=== PATIENT | female | born 1960 | race Caucasian/White ===

== ENCOUNTER 2017-05-06 18:27 | Emergency (ER) | payer OTHER ==
[~2017-05-06] VITALS: Ht 152.4 cm; Wt 74.8 kg
[2017-05-06] MEDS ORDERED: HYDCHL25 (19:52)
[2017-05-06] MEDS ORDERED: ANAS1 PO (19:55)
[2017-05-06 20:04] LABS: BASOPHILS ABSOLUTE AUTO 0.03 K/mm3 (0.00-0.23); BASOPHILS PERCENT AUTO 1 % (0-2); EOSINOPHILS ABSOLUTE AUTO 0.12 K/mm3 (0.00-0.68); EOSINOPHILS PERCENT AUTO 2 % (0-6); Hematocrit 37.6 % (33.0-51.0); Hemoglobin 12.5 g/dL (11.5-16.0); IMMATURE GRAN ABSOLUTE AUTO 0.02 K/mm3 (0.00-0.10); IMMATURE GRAN PERCENT AUTO 0 % (0-1); LYMPHOCYTES ABSOLUTE AUTO 2.04 K/mm3 (0.84-5.20); LYMPHOCYTES PERCENT AUTO 34 % (21-46); MONOCYTES ABSOLUTE AUTO 0.42 K/mm3 (0.16-1.47); MONOCYTES PERCENT AUTO 7 % (4-13); Mean Corpuscular HGB 27.7 pg (26.0-34.0); Mean Corpuscular HGB Conc 33.2 g/dL (31.5-36.5); Mean Corpuscular Volume 83 fL (80-100); NEUTROPHILS ABSOLUTE AUTO 3.46 K/mm3 (1.96-9.15); NEUTROPHILS PERCENT AUTO 57 % (41-73); Platelet Count 269 K/mm3 (150-400); Red Blood Cell Count 4.51 M/mm3 (3.80-5.20); White Blood Cell Count 6.09 K/mm3 (4.00-11.30)
[2017-05-06 20:24] LABS: Alanine Aminotransfer (ALT/SGP 33 U/L (12-78); Albumin, Blood 3.3 g/dL (3.4-5.0); Albumin/Globulin Ratio 0.8 (0.8-1.8); Alk Phos 118 U/L (50-136); Anion Gap 8 mmol/L (6-16); Aspartate Aminotrans (AST/SGOT 25 U/L (12-37); Bilirubin, Total 0.4 mg/dL (0.1-1.0); Blood Urea Nitrogen 14 mg/dL (8-24); Bun/Creatinine Ratio 24.7 (12.0-20.0); CO2, Blood 28 mmol/L (21-32); Calcium, Blood 8.6 mg/dL (8.5-10.1); Chloride, Blood 106 mmol/L (98-108); Creatinine, Blood 0.57 mg/dL (0.40-1.00); Globulin, Blood 4.4 g/dL (2.2-4.0); Glomerular Filtration Rate >60 (60-); Glucose, Blood 123 mg/dL (70-99); Potassium, Blood 3.3 mmol/L (3.5-5.5); Sodium, Blood 142 mmol/L (136-145); Total Protein, Blood 7.7 g/dL (6.4-8.2); Troponin I <0.015 ng/mL (0.000-0.040)
== END 2017-05-06 21:52 | disposition home or self-care (01) ==
LOC: ER 18:27
PROVIDERS: Physician Assistant
DX: R07.89 Other chest pain (principal); I10 Essential (primary) hypertension; Z85.3 Personal history of malignant neoplasm of breast; Z88.5 Allergy status to narcotic agent; Z79.899 Other long term (current) drug therapy
CPT/HCPCS: 36415; 80053; 83880; 84484; 85025; 93005; 93010; 96374; 99283; J1885

== ENCOUNTER 2018-01-01 20:12 | Emergency (ER) | payer OTHER ==
[~2018-01-01] VITALS: Ht 152.4 cm; Wt 81.7 kg
[~2018-01-01 20:12] MED LIST: ANAS1 PO; HYDCHL25
[2018-01-01] MEDS ORDERED: Cleocin HCl300 MG PO (21:13)
== END 2018-01-01 21:23 | disposition home or self-care (01) ==
LOC: ER 20:12
DX: K02.9 Dental caries, unspecified (principal); Z88.5 Allergy status to narcotic agent; Z79.899 Other long term (current) drug therapy; E11.9 Type 2 diabetes mellitus without complications; I10 Essential (primary) hypertension; Z85.3 Personal history of malignant neoplasm of breast
CPT/HCPCS: 99282

== ENCOUNTER 2018-08-20 18:46 | Inpatient (IN) | payer OTHER ==
[~2018-08-20] VITALS: Ht 152.4 cm; Wt 91.7 kg
[~2018-08-20 18:46] MED LIST changes: +Cleocin HCl300 MG PO; -HYDCHL25; +HYDCHL25 PO
[2018-08-20 19:52] LABS: BASOPHILS ABSOLUTE AUTO 0.02 K/mm3 (0.00-0.23); BASOPHILS PERCENT AUTO 2 % (0-2); EOSINOPHILS ABSOLUTE AUTO 0.02 K/mm3 (0.00-0.68); EOSINOPHILS PERCENT AUTO 2 % (0-6); Hematocrit 37.5 % (33.0-51.0); Hemoglobin 12.2 g/dL (11.5-16.0); IMMATURE GRAN ABSOLUTE AUTO 0.01 K/mm3 (0.00-0.10); IMMATURE GRAN PERCENT AUTO 1 % (0-1); LYMPHOCYTES ABSOLUTE AUTO 0.82 K/mm3 (0.84-5.20); LYMPHOCYTES PERCENT AUTO 70 % (21-46); MONOCYTES ABSOLUTE AUTO 0.22 K/mm3 (0.16-1.47); MONOCYTES PERCENT AUTO 19 % (4-13); Mean Corpuscular HGB 26.9 pg (26.0-34.0); Mean Corpuscular HGB Conc 32.5 g/dL (31.5-36.5); Mean Corpuscular Volume 83 fL (80-100); Mean Platelet Volume 10.7 fL (9.1-12.4); NEUTROPHILS ABSOLUTE AUTO 0.09 K/mm3 (1.96-9.15); NEUTROPHILS PERCENT AUTO 8 % (41-73); NRBC ABSOLUTE 0.02 K/mm3 (0.00-0.02); NRBC Auto 1.7 /100 WBC (0.0-0.2); Platelet Count 255 K/mm3 (150-400); RDW Coefficient Variation 13.2 % (11.7-14.2); RDW Standard Deviation 39.7 fL (35.1-46.3); Red Blood Cell Count 4.53 M/mm3 (3.80-5.20); White Blood Cell Count 1.18 K/mm3 (4.00-11.30)
[2018-08-20 20:15] LABS: Alanine Aminotransfer (ALT/SGP 60 U/L (12-78); Albumin, Blood 3.2 g/dL (3.4-5.0); Albumin/Globulin Ratio 0.7 (0.8-1.8); Alk Phos 156 U/L (50-136); Anion Gap 5 mmol/L (6-16); Aspartate Aminotrans (AST/SGOT 57 U/L (12-37); Bilirubin, Total 0.6 mg/dL (0.1-1.0); Blood Urea Nitrogen 15 mg/dL (8-24); Bun/Creatinine Ratio 26.9 (12.0-20.0); CO2, Blood 28 mmol/L (21-32); Calcium, Blood 9.3 mg/dL (8.5-10.1); Chloride, Blood 103 mmol/L (98-108); Creatinine, Blood 0.56 mg/dL (0.40-1.00); Globulin, Blood 4.5 g/dL (2.2-4.0); Glomerular Filtration Rate >60 (60-); Glucose, Blood 132 mg/dL (70-99); Potassium, Blood 3.8 mmol/L (3.5-5.5); Sodium, Blood 136 mmol/L (136-145); Total Protein, Blood 7.7 g/dL (6.4-8.2)
[2018-08-20 21:21] LABS: Source, Urine Clean Catch
[2018-08-20 21:22] LABS: Bilirubin, Urine Neg (Neg); Blood, Urine 1+ (Neg); Glucose Qualitative, Urine Neg (Neg); Ketones, Urine Neg (Neg); Leukocyte Esterase, Urine Neg (Neg); Nitrite, Urine Neg (Neg); Protein, Urine Neg (Neg); Specific Gravity, Urine 1.025 (1.003-1.022); Urobilinogen, Urine NORM (Normal)
[2018-08-20 21:26] LABS: Appearance, Urine Clear (Clear); Color, Urine Yellow (P-Yellow)
[2018-08-20 21:29] LABS: Bacteria Rare /hpf; Red Blood Cells, Urine 0-2 /hpf (0-2); Squamous Epithelial Cells Few /hpf (Few); White Blood Cells, Urine Rare /hpf (0-5)
--- NOTE | 2018-08-20 23:45 | NUR ---
PT ADMITTED FROM ED FOR NEUTROPENIC FEVER. A&O X4. 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 PT REPORTS LAST CHEMO TX WAS 2 WEEKS AGO. WBC AT 1.18. PT IN NEUTROPENIC PRECAUTIONS. CHEST XRAY SHOWED PNEUMONIA IN LEFT UPPER LOBE. LUNG SOUNDS TO LEFT SIDE ARE COURSE AND DIMINISHED. PT DENIES SOB. TEMP AT 98.9 UPON ARRIVAL. FLUIDS AND ABX INFUSING. INDEPENDENT IN ROOM. PT ORIENTED TO ROOM AND EDUCATED NET FISHER LIGHT.
[2018-08-21] MEDS ORDERED: GLIP5 PO (00:04)
[2018-08-21] MEDS ORDERED: LEVSOD25 PO (00:05)
[2018-08-21] MEDS ORDERED: METF500 PO (00:06)
[2018-08-21] MEDS ORDERED: HYDR1TAB94 (00:07)
[2018-08-21 04:46] LABS: BASOPHILS ABSOLUTE AUTO 0.03 K/mm3 (0.00-0.23); BASOPHILS PERCENT AUTO 3 % (0-2); EOSINOPHILS ABSOLUTE AUTO 0.02 K/mm3 (0.00-0.68); EOSINOPHILS PERCENT AUTO 2 % (0-6); Hematocrit 34.6 % (33.0-51.0); Hemoglobin 11.1 g/dL (11.5-16.0); IMMATURE GRAN ABSOLUTE AUTO 0.02 K/mm3 (0.00-0.10); IMMATURE GRAN PERCENT AUTO 2 % (0-1); LYMPHOCYTES ABSOLUTE AUTO 0.87 K/mm3 (0.84-5.20); LYMPHOCYTES PERCENT AUTO 73 % (21-46); MONOCYTES ABSOLUTE AUTO 0.21 K/mm3 (0.16-1.47); MONOCYTES PERCENT AUTO 18 % (4-13); Mean Corpuscular HGB 27.3 pg (26.0-34.0); Mean Corpuscular HGB Conc 32.1 g/dL (31.5-36.5); Mean Corpuscular Volume 85 fL (80-100); Mean Platelet Volume 10.2 fL (9.1-12.4); NEUTROPHILS ABSOLUTE AUTO 0.05 K/mm3 (1.96-9.15); NEUTROPHILS PERCENT AUTO 4 % (41-73); Platelet Count 200 K/mm3 (150-400); RDW Coefficient Variation 13.2 % (11.7-14.2); RDW Standard Deviation 41.1 fL (35.1-46.3); Red Blood Cell Count 4.06 M/mm3 (3.80-5.20)
[2018-08-21 05:08] LABS: Alanine Aminotransfer (ALT/SGP 49 U/L (12-78); Albumin, Blood 2.8 g/dL (3.4-5.0); Albumin/Globulin Ratio 0.7 (0.8-1.8); Alk Phos 134 U/L (50-136); Anion Gap 4 mmol/L (6-16); Aspartate Aminotrans (AST/SGOT 42 U/L (12-37); Bilirubin, Total 0.4 mg/dL (0.1-1.0); Blood Urea Nitrogen 13 mg/dL (8-24); CO2, Blood 29 mmol/L (21-32); Calcium, Blood 8.6 mg/dL (8.5-10.1); Chloride, Blood 108 mmol/L (98-108); Creatinine, Blood 0.65 mg/dL (0.40-1.00); Globulin, Blood 3.8 g/dL (2.2-4.0); Glomerular Filtration Rate >60 (60-); Glucose, Blood 132 mg/dL (70-99); Potassium, Blood 3.9 mmol/L (3.5-5.5); Sodium, Blood 141 mmol/L (136-145); Total Protein, Blood 6.6 g/dL (6.4-8.2)
--- NOTE | 2018-08-22 04:51 | NUR ---
SUMMARY: ADMIT DAY 2 NEUTROPENIC PRECAUTIONS, FERNANDO PNEUMONIA ON HOSPITALIST SERVICE. NO ACUTE CHANGES THIS SHIFT. VSS, AFEBRILE, ROOM AIR, PAIN WELL CONTROLLED WITH 1 TAB NORCO X2 THIS SHIFT. AWAIT MORNING LAB RESULTS, ANTICIPATE CONTINUATION OF ANTIBIOTICS AND NEUPOGEN.
[2018-08-22 05:06] LABS: BASOPHILS ABSOLUTE AUTO 0.06 K/mm3 (0.00-0.23); BASOPHILS PERCENT AUTO 3 % (0-2); EOSINOPHILS ABSOLUTE AUTO 0.03 K/mm3 (0.00-0.68); EOSINOPHILS PERCENT AUTO 1 % (0-6); Hemoglobin 10.9 g/dL (11.5-16.0); IMMATURE GRAN ABSOLUTE AUTO 0.05 K/mm3 (0.00-0.10); IMMATURE GRAN PERCENT AUTO 2 % (0-1); LYMPHOCYTES ABSOLUTE AUTO 0.98 K/mm3 (0.84-5.20); LYMPHOCYTES PERCENT AUTO 45 % (21-46); MONOCYTES ABSOLUTE AUTO 0.45 K/mm3 (0.16-1.47); MONOCYTES PERCENT AUTO 21 % (4-13); Mean Corpuscular HGB Conc 32.1 g/dL (31.5-36.5); Mean Corpuscular Volume 84 fL (80-100); Mean Platelet Volume 10.2 fL (9.1-12.4); NEUTROPHILS ABSOLUTE AUTO 0.62 K/mm3 (1.96-9.15); NEUTROPHILS PERCENT AUTO 28 % (41-73); NRBC ABSOLUTE 0.05 K/mm3 (0.00-0.02); NRBC Auto 2.3 /100 WBC (0.0-0.2); Platelet Count 205 K/mm3 (150-400); RDW Coefficient Variation 13.4 % (11.7-14.2); RDW Standard Deviation 41.8 fL (35.1-46.3); Red Blood Cell Count 4.03 M/mm3 (3.80-5.20); White Blood Cell Count 2.19 K/mm3 (4.00-11.30)
[2018-08-22 05:26] LABS: Albumin, Blood 2.8 g/dL (3.4-5.0); Anion Gap 6 mmol/L (6-16); Blood Urea Nitrogen 9 mg/dL (8-24); Bun/Creatinine Ratio 14.1 (12.0-20.0); CO2, Blood 26 mmol/L (21-32); Calcium, Blood 9.2 mg/dL (8.5-10.1); Chloride, Blood 108 mmol/L (98-108); Creatinine, Blood 0.64 mg/dL (0.40-1.00); Glomerular Filtration Rate >60 (60-); Glucose, Blood 104 mg/dL (70-99); Phosphorus, Blood 4.7 mg/dL (2.5-4.9); Potassium, Blood 3.9 mmol/L (3.5-5.5); Sodium, Blood 140 mmol/L (136-145)
--- NOTE | 2018-08-22 13:50 | NUR ---
PT SITTING UP READING. NEB TX COMPLETE.
--- NOTE | 2018-08-22 17:49 | NUR ---
SHIFT SUMMARY NO ACUTE CHANGES THIS SHIFT. VSS AND PT REMAINS AFEBRILE. PT DOES HAVE AN OCCASSIONAL PRODUCTIVE COUGH WITH WHEEZING. RT GIVING BREATHING TXS. IV IS SL. PT INDEP IN ROOM. MARY REG DIET. PT STARTED ON ORAL STEROIDS TODAY. MEDICATED WITH 1 PAIN PILL. WBC TRENDING UP. USES CALL LIGHT APPROPRIATELY. WILL CONT TO MONITOR.
--- NOTE | 2018-08-23 05:23 | NUR ---
NO SIG CHANGES DURING NIGHT. LS REMAINED CLEAR WITHOUT WHEEZES T/O SHIFT. DID NOT REQUIRE ADDITIONAL NEB TREATMENTS. MEDICATED FOR PAIN ONCE ALONG WITH ROBITUSSIN. PT DENIED ANY NEEDS THIS AM AND IS HOPEFUL TO DC HOME. CALL LIGHT IN REACH AND WILL REPORT OFF TO DAY SHIFT.
[2018-08-23 05:52] LABS: Hematocrit 35.5 % (33.0-51.0); Hemoglobin 11.5 g/dL (11.5-16.0); Mean Corpuscular HGB 26.7 pg (26.0-34.0); Mean Corpuscular HGB Conc 32.4 g/dL (31.5-36.5); Mean Corpuscular Volume 83 fL (80-100); Mean Platelet Volume 10.8 fL (9.1-12.4); NRBC ABSOLUTE 0.06 K/mm3 (0.00-0.02); NRBC Auto 0.9 /100 WBC (0.0-0.2); Platelet Count 242 K/mm3 (150-400); RDW Coefficient Variation 13.7 % (11.7-14.2); White Blood Cell Count 6.71 K/mm3 (4.00-11.30)
[2018-08-23 06:15] LABS: BAND PERCENT MAN 23 % (0-8); BASOPHILS ABSOLUTE MAN 0.06 K/mm3 (0.00-0.23); BASOPHILS PERCENT MAN 1 % (0-2); EOSINOPHILS PERCENT MAN 0 % (0-6); LYMPHOCYTES PERCENT MAN 15 % (21-46); METAMYELOCYTE ABSOLUTE MAN 0.33 K/mm3 (0.00-0.00); METAMYELOCYTE PERCENT MAN 5 % (0-0); MONOCYTES ABSOLUTE MAN 0.67 K/mm3 (0.16-1.47); MONOCYTES PERCENT MAN 10 % (4-13); MYELOCYTE ABSOLUTE MAN 0.06 K/mm3 (0.00-0.00); MYELOCYTE PERCENT MAN 1 % (0-0); NEUTROPHILS ABSOLUTE MAN 4.56 K/mm3 (1.96-9.15); SEG NEUTROPHILS PERCENT MAN 45 % (41-73); TOTAL CELLS COUNTED 100
[2018-08-23] MEDS ORDERED: Florastor250 MG PO (12:23)
[2018-08-23] MEDS ORDERED: ALBU2.5V5 NEB (12:24)
[2018-08-23] MEDS ORDERED: ROBITUSSIN100 MG/5 M PO (12:39)
[2018-08-23] MEDS ORDERED: ALBU3IS INH (12:49)
[2018-08-23] MEDS ORDERED: Augmentin 875-1 EACH PO (12:50)
[2018-08-23] MEDS ORDERED: DOCU100 PO (12:54)
[2018-08-23] MEDS ORDERED: PRED20 (12:54)
[2018-08-23] MEDS ORDERED: Senna8.6 MG PO (12:54)
[2018-08-23] MEDS ORDERED: Norco 5-325 Ta1 EACH PO (12:55)
--- NOTE | 2018-08-23 15:33 | NUR ---
DISCHARGE MEDS FAXED TO [facility], CARE MANAGEMENT SETTING UP NEB MACHINE & TUBING, FWW, AND RISER. PT STATES UNDERSTANDING OF MEDS AND F/U. DECLINES TO WAIT ANY LONGER TO ESTABLISH PCP.
== END 2018-08-23 14:45 | disposition home or self-care (01) | DRG 194 ==
LOC: ER 18:46 → SURS 23:20
PROVIDERS: Internal Medicine; Physician Assistant; ADMIT Internal Medicine
DX: J18.1 Lobar pneumonia, unspecified organism (principal); C78.00 Secondary malignant neoplasm of unspecified lung; C78.89 Secondary malignant neoplasm of other digestive organs; C79.51 Secondary malignant neoplasm of bone; C79.89 Secondary malignant neoplasm of other specified sites; C50.919 Malignant neoplasm of unspecified site of unspecified female breast; E11.9 Type 2 diabetes mellitus without complications; I10 Essential (primary) hypertension; G89.3 Neoplasm related pain (acute) (chronic); E03.9 Hypothyroidism, unspecified
CPT/HCPCS: 36415; 71046; 80053; 80069; 81001; 82947; 83605; 85025; 87040; 94640; 94760; 94761; 96365; 96375; 99284-25; A9270-GY; C9113; J0456; J0696; J1447; J2543; J7030; J7050; J7512

== ENCOUNTER 2018-12-02 02:10 | Day surgery (SDC) | payer OTHER ==
[~2018-12-02 02:10] MED LIST changes: +ALBU2.5V5 NEB; +ALBU3IS INH; +Augmentin 875-1 EACH PO; +DOCU100 PO; +Florastor250 MG PO; +GLIP5 PO; +HYDR1TAB94 PO; +LEVSOD25 PO; +METCAR500 PO; +METF500 PO; +Norco 5-325 Ta1 EACH PO; +PRED20; +Percocet 5-3251 EACH PO; +ROBITUSSIN100 MG/5 M PO; +Senna8.6 MG PO
[2018-12-02] MEDS ORDERED: IBRANCE100 MG PO (08:45)
[2018-12-02] MEDS ORDERED: PROC5 PO (08:46)
[2018-12-02] MEDS ORDERED: Zantac150 MG (08:46)
[2018-12-02] MEDS ORDERED: LORA1 PO (08:47)
[2018-12-02] MEDS ORDERED: DEXA4 PO (08:48)
[2018-12-02] MEDS ORDERED: POTA10T PO (08:48)
[2018-12-02] MEDS ORDERED: ONDA4ODT MM (08:53)
[2018-12-02] MEDS ORDERED: NARCAN4 MG INH (08:53)
[2018-12-02] MEDS ORDERED: MORP15ER PO (08:54)
== END 2018-12-02 10:18 | disposition home or self-care (01) ==
LOC: ATC 02:10
DX: D64.9 Anemia, unspecified (principal); C50.812 Malignant neoplasm of overlapping sites of left female breast; C79.51 Secondary malignant neoplasm of bone; G89.3 Neoplasm related pain (acute) (chronic); R11.2 Nausea with vomiting, unspecified; T45.1X5A Adverse effect of antineoplastic and immunosuppressive drugs, initial encounter; E11.9 Type 2 diabetes mellitus without complications; I10 Essential (primary) hypertension; Z88.5 Allergy status to narcotic agent; Z17.0 Estrogen receptor positive status [ER+]
CPT/HCPCS: 36415; 36430; 86850; 86900; 86901; 86920; J7050; P9016

== ENCOUNTER 2019-01-26 10:05 | Day surgery (SDC) | payer OTHER ==
[~2019-01-26 10:05] MED LIST changes: +DEXA4 PO; +IBRANCE100 MG PO; +LORA1 PO; +MORP15ER PO; +NARCAN4 MG INH; +ONDA4ODT MM; +POTA10T PO; +PROC5 PO; +Zantac150 MG
== END 2019-01-26 11:26 | disposition home or self-care (01) ==
LOC: ATC 10:05
DX: C50.912 Malignant neoplasm of unspecified site of left female breast (principal); C79.51 Secondary malignant neoplasm of bone; D63.0 Anemia in neoplastic disease; Z17.0 Estrogen receptor positive status [ER+]; I10 Essential (primary) hypertension; E11.9 Type 2 diabetes mellitus without complications; Z79.899 Other long term (current) drug therapy; Z79.84 Long term (current) use of oral hypoglycemic drugs; Z79.51 Long term (current) use of inhaled steroids; Z88.5 Allergy status to narcotic agent
CPT/HCPCS: 96360; J7030

== ENCOUNTER 2019-02-11 17:34 | Inpatient (IN) | payer OTHER ==
[~2019-02-11] VITALS: Ht 149.9 cm; Wt 77.1 kg
[2019-02-11 18:54] LABS: International Normalized Ratio 1.03; Prothrombin Time Results 10.9 Sec (9.7-11.5)
[2019-02-11 19:04] LABS: Alanine Aminotransfer (ALT/SGP 58 U/L (12-78); Albumin, Blood 2.8 g/dL (3.4-5.0); Albumin/Globulin Ratio 0.5 (0.8-1.8); Alk Phos 285 U/L (50-136); Anion Gap 6 mmol/L (6-16); Aspartate Aminotrans (AST/SGOT 102 U/L (12-37); Bilirubin, Total 1.3 mg/dL (0.1-1.0); Blood Urea Nitrogen 16 mg/dL (8-24); Bun/Creatinine Ratio 25.9 (12.0-20.0); CO2, Blood 23 mmol/L (21-32); Calcium, Blood 12.1 mg/dL (8.5-10.1); Chloride, Blood 104 mmol/L (98-108); Creatinine, Blood 0.62 mg/dL (0.40-1.00); Globulin, Blood 5.3 g/dL (2.2-4.0); Glomerular Filtration Rate >60 (60-); Glucose, Blood 253 mg/dL (70-99); Sodium, Blood 133 mmol/L (136-145); Total Protein, Blood 8.1 g/dL (6.4-8.2); Troponin I <0.015 ng/mL (0.000-0.040)
[2019-02-11 22:23] LABS: Source, Urine Clean Catch
[2019-02-11 22:25] LABS: Bilirubin, Urine Neg (Neg); Blood, Urine 1+ (Neg); Glucose Qualitative, Urine 4+ (Neg); Ketones, Urine 1+ (Neg); Leukocyte Esterase, Urine 1+ (Neg); Nitrite, Urine Neg (Neg); Protein, Urine 1+ (Neg); Specific Gravity, Urine 1.025 (1.003-1.022); Urobilinogen, Urine 2+ (Normal)
[2019-02-11 22:33] LABS: Appearance, Urine Clear (Clear); Color, Urine Yellow (P-Yellow)
[2019-02-11 22:35] LABS: Bacteria Few /hpf; Calcium Oxalate Crystals Few /hpf; Red Blood Cells, Urine 0-2 /hpf (0-2); Squamous Epithelial Cells Rare /hpf (Few)
[2019-02-12 06:19] LABS: BASOPHILS ABSOLUTE AUTO 0.02 K/mm3 (0.00-0.23); BASOPHILS PERCENT AUTO 2 % (0-2); EOSINOPHILS ABSOLUTE AUTO 0.01 K/mm3 (0.00-0.68); EOSINOPHILS PERCENT AUTO 1 % (0-6); Hematocrit 23.7 % (33.0-51.0); Hemoglobin 7.5 g/dL (11.5-16.0); IMMATURE GRAN PERCENT AUTO 0 % (0-1); LYMPHOCYTES ABSOLUTE AUTO 0.73 K/mm3 (0.84-5.20); LYMPHOCYTES PERCENT AUTO 54 % (21-46); MONOCYTES ABSOLUTE AUTO 0.22 K/mm3 (0.16-1.47); MONOCYTES PERCENT AUTO 16 % (4-13); Mean Corpuscular HGB 31.4 pg (26.0-34.0); Mean Corpuscular HGB Conc 31.6 g/dL (31.5-36.5); Mean Corpuscular Volume 99 fL (80-100); NEUTROPHILS ABSOLUTE AUTO 0.37 K/mm3 (1.96-9.15); NEUTROPHILS PERCENT AUTO 27 % (41-73); NRBC ABSOLUTE 0.02 K/mm3 (0.00-0.02); NRBC Auto 1.5 /100 WBC (0.0-0.2); RDW Coefficient Variation 19.9 % (11.7-14.2); Red Blood Cell Count 2.39 M/mm3 (3.80-5.20); White Blood Cell Count 1.35 K/mm3 (4.00-11.30)
[2019-02-12 06:21] LABS: Platelet Count 36 K/mm3 (150-400)
--- NOTE | 2019-02-12 07:29 | NUR ---
SHIFT SUMMARY PT ARRIVED TO FLOOR IN NO DISTRESS. PT HAD NO COMPLAINTS. PT WAS FATIGUED AND WANTED TO SLEEP. PT WENT TO SLEEP AFTER SNACK. PT T/O NIGHT. THIS AM LAB CALLED WITH CRITICAL LAB, PLT- 36. PROVIDER CALLED AND INFORMED OF CRITICAL LAB AND HGB WELL. DR. CALVILLO STATED TO CONTINUE TO MONITOR. LAB VALUES PASSED ON TO DAY RN. PT CURRENTLY AWAKE AND IN NO DISTRESS. CALL LIGHT IN REACH.
--- NOTE | 2019-02-12 17:45 | NUR ---
ALERT. ORIENTED. UNLABORED RESPIRATIONS. VERY EMOTIONAL AT TIMES. TALKED TO PATIENT ABOUT WHAT HER ONCOLOGIST HAD SAID. PATIENT TO RECEIVE ONE UNIT BLOOD AND TO BE DISCHARGED TOMORROW. NO ACUTE CHANGES. TOLERATING BLOOD TRANSFUSION. REFUSES DINNER BLOOD SUGAR CHECK. WCTM.
--- NOTE | 2019-02-13 04:12 | NUR ---
SHIFT SUMMARY PT REPORTS NO ISSUES. PT IS BECOMING WEAKER AND AT TIMES UNSTEADY ON FEET. PT HAS BEEN SLEEPING T/O SHIFT. PT CURRENTLY SLEEPING AND BREATHING EASY. CALL LIGHT IN REACH.
[2019-02-13 05:11] LABS: Hematocrit 28.1 % (33.0-51.0); Hemoglobin 9.2 g/dL (11.5-16.0); Mean Corpuscular HGB 31.3 pg (26.0-34.0); Mean Corpuscular HGB Conc 32.7 g/dL (31.5-36.5); NRBC ABSOLUTE 0.03 K/mm3 (0.00-0.02); NRBC Auto 1.8 /100 WBC (0.0-0.2); RDW Coefficient Variation 19.9 % (11.7-14.2); RDW Standard Deviation 69.5 fL (35.1-46.3); Red Blood Cell Count 2.94 M/mm3 (3.80-5.20); White Blood Cell Count 1.71 K/mm3 (4.00-11.30)
[2019-02-13 05:26] LABS: Anion Gap 7 mmol/L (6-16); Blood Urea Nitrogen 13 mg/dL (8-24); Bun/Creatinine Ratio 23.3 (12.0-20.0); CO2, Blood 23 mmol/L (21-32); Calcium, Blood 10.9 mg/dL (8.5-10.1); Chloride, Blood 106 mmol/L (98-108); Creatinine, Blood 0.56 mg/dL (0.40-1.00); Glomerular Filtration Rate >60 (60-); Glucose, Blood 253 mg/dL (70-99); Potassium, Blood 3.9 mmol/L (3.5-5.5); Sodium, Blood 136 mmol/L (136-145)
[2019-02-13 05:27] LABS: Mean Corpuscular Volume 96 fL (80-100)
[2019-02-13 05:35] LABS: Platelet Count 37 K/mm3 (150-400)
[2019-02-13 05:49] LABS: BAND PERCENT MAN 4 % (0-8); BASOPHILS ABSOLUTE MAN 0.03 K/mm3 (0.00-0.23); BASOPHILS PERCENT MAN 2 % (0-2); EOSINOPHILS PERCENT MAN 0 % (0-6); LYMPHOCYTES ABSOLUTE MAN 0.71 K/mm3 (0.84-5.20); LYMPHOCYTES PERCENT MAN 42 % (21-46); METAMYELOCYTE ABSOLUTE MAN 0.01 K/mm3 (0.00-0.00); METAMYELOCYTE PERCENT MAN 1 % (0-0); MONOCYTES ABSOLUTE MAN 0.06 K/mm3 (0.16-1.47); MONOCYTES PERCENT MAN 4 % (4-13); NEUTROPHILS ABSOLUTE MAN 0.87 K/mm3 (1.96-9.15); SEG NEUTROPHILS PERCENT MAN 47 % (41-73); TOTAL CELLS COUNTED 100
[2019-02-13 10:59] LABS: Vancomycin, Trough 12.8 ug/mL (5.0-10.0)
--- NOTE | 2019-02-13 17:35 | NUR ---
Shift Summary A/Ox4. Pleasant and cooperative with care. Pt shows signs of depression and withdrawn. Medicated once for back pain per EMAR. MRI ordered and done. Discharge pending MRI results per Dr. Pires. SBA to bathroom, daughter has been at bedside this whole day. Denies nausea and vomiting. Pt has been running low-grade fever t/o shift. Pt has been declining blood sugar checks. No other acute changes this shift.
[2019-02-13] MEDS ORDERED: LEVFLO500 PO (17:37)
== END 2019-02-13 18:42 | disposition home or self-care (01) | DRG 193 ==
LOC: ER 17:34 → MEDS 17:35
PROVIDERS: Emergency Medicine; Internal Medicine; Physician Assistant; ADMIT Hospitalist
DX: J18.9 Pneumonia, unspecified organism (principal); G92 Toxic encephalopathy; D61.810 Antineoplastic chemotherapy induced pancytopenia; C78.00 Secondary malignant neoplasm of unspecified lung; C79.51 Secondary malignant neoplasm of bone; C78.89 Secondary malignant neoplasm of other digestive organs; C50.919 Malignant neoplasm of unspecified site of unspecified female breast; E03.9 Hypothyroidism, unspecified; I10 Essential (primary) hypertension; E11.9 Type 2 diabetes mellitus without complications; Z88.5 Allergy status to narcotic agent; Z79.811 Long term (current) use of aromatase inhibitors; Z79.84 Long term (current) use of oral hypoglycemic drugs; Z79.899 Other long term (current) drug therapy
CPT/HCPCS: 36415; 36430; 70450; 70553; 71046; 80048; 80053; 80202; 81001; 82947; 83605; 84145; 84484; 85025; 85610; 86850; 86900; 86901; 86923; 87040; 87086; 93005; 93010; 96360; 96361; 96365; 96368; 96375; 96376; 99285-25; A9270-GY; A9577; G0378; J0692; J3370; J7030; J7050; P9016